=== PATIENT | male | born 1955 ===

== ENCOUNTER 2024-07-15 06:26 | Day surgery (SDC) | payer BC, SELFPAY | END 2024-07-15 15:18 | disposition home or self-care (01) | LOC: GI 06:26 | PROVIDERS: ATTENDING PHYSICIAN Internal Medicine Gastroenterology | DX: Z12.11 Encounter for screening for malignant neoplasm of colon (principal); K64.8 Other hemorrhoids; R12 Heartburn; K31.7 Polyp of stomach and duodenum; K31.89 Other diseases of stomach and duodenum; D12.0 Benign neoplasm of cecum; D12.2 Benign neoplasm of ascending colon; D12.5 Benign neoplasm of sigmoid colon; K62.1 Rectal polyp; Z86.0100 Personal history of colon polyps, unspecified | CPT/HCPCS: 45385; 45380; 43239; 88305 ==